=== PATIENT | male | born 1965 | race Caucasian/White ===

== ENCOUNTER 2017-11-16 19:37 | Inpatient (IN) | payer OTHER ==
[~2017-11-16] VITALS: Ht 172.7 cm; Wt 73.8 kg
--- NOTE | ~2017-11-16 | CATHLAB ---
[facility] [address] [place] [address] INVASIVE PROCEDURE REPORT Name: KADEN SHEPPARD Room #: 210-P ADM IN M.R.#: [id number] Admission: 11/16/17 Attend Phys: Carmelo Fairchild, Discharge: Date of : 65 Date of Service: 11/17/17 1240 Report #: [id number] THIS REPORT FOR: //name// APPROVED REPORT Study performed: 11/16/2017 19:43:13 Patient Details Patient Status: ED Room #: The patient is a 52 year-old male Event Personnel Carmelo Fairchild Unarmed Security Officer, Moraima Lora, Layton Cleaning RN, Nel Stone Scrub Procedures Performed Art Access - R femoral artery* Left Heart Cath w/or w/o Coronaries [id number] [facility] MYKE Revasc AMI Total/Sub Single PDA C9606 AMIREVSING Indication STEMI (>0 to less than or equal to 6 hours) Risk Factors Dysplipidemia , Family History, Hypertension, Tobacco History () Admission/Lab Medications/Medications given during procedure Aspirin, Glycoprotein IllbIlla Inhibitors, Heparin Unfract. Procedure Narrative The Right Groin^ was infiltrated with 2% Lidocaine subcutaneous anesthesia. A PINNACLE 6FR Sheath #[id number] sheath was inserted into the RFA^. Coronary angiography was performed using coronary diagnostic catheters. The right coronary system was accessed and visualized with a JR4 catheter. The left coronary system was accessed and visualized with a JL4 catheter. The left ventricle was accessed and visualized with a Pigtail catheter. Left ventricular/Aortic Valve gradient assessed via catheter pullback. Left ventriculogram was performed in 30 degree projection. Hemostasis was obtained with manual pressure following sheath removal without any complications. The patient tolerated the procedure well and there were no complications associated with the procedure. [facility] [place] [address] INVASIVE PROCEDURE REPORT Name: SILVERKADEN Room #: 210-[facility] IN M.R.#: [id number] Admission: 11/16/17 Attend Phys: Carmelo Fairchild, Discharge: Date of : 65 Date of Service: 11/17/17 1240 Report #: [id number] Fluoro Time: 11.16 minutes Dose: DAP 86670.90 cGycm2 1157 mGy Contrast Type and Amount: Omnipaque 210 ml Coronary Angiography The patient's coronary anatomy is right dominant. Diagnostic Cath Left Main Mild distal left main plaquing, 20% LAD Tubular, 30% mid LAD stenosis Circumflex The circumflex was large but nondominant. The main circumflex in the AV groove was angiographically normal OM1 First marginal branch with a 60% proximal stenosis OM2 Second marginal branch, large in caliber, angiographically normal OM3 Small, distally arising third marginal branch without angiographic disease Right Coronary Dominant right coronary subtotally occluded in its midportion. TEQUILA 1 flow Mild 20-30% proximal and distal right coronary plaquing R PDA The mid posterior descending exhibited a 95% stenosis RPLV Posterorlateral branch was angiographically normal Left Ventriculography The left ventricle is normal in size with abnormal contractility. The left ventricular ejection fraction is estimated to be 45%. Left ventricular wall motion abnormalities are present. There is no mitral insufficiency. Mild left ventricular dysfunction with inferior wall hypokinesis. No aortic stenosis. No mitral insufficiency. Hemodynamics The aortic pressure is 134/66 mmHg with a mean of 92 mmHg. The left ventricular pressure is 119/8 mmHg with a mean of mmHg. The left ventricular end diastolic pressure is 22 mmHg. PCI Technique Lesion Anticoagulation was achieved with Heparin, Integrilin. Patient was preloaded with Brillinta. Percutaneous coronary intervention was performed on the right posterior descending artery. A LAUNCHER 6FR JR 4 SH #[id number] Guide Catheter was used to engage the right coronary ostium. A Luge Wire .014 x 182CM #[id number] Interventional Guidewire was used to cross the lesion. BALLOON DILATION [facility] [address] [place] [address] INVASIVE PROCEDURE REPORT Name: SILVERKADEN Room #: 210-P [facility] IN M.R.#: [id number] Admission: 11/16/17 Attend Phys: Carmelo Fairchild, Discharge: Date of : 65 Date of Service: 11/17/17 1240 Report #: [id number] A Balloon catheter Euphora RX 2.5 x 12 #[id number] was inserted and inflated up to 12.00atm for 32seconds. Repeat angiography revealed the following post-dilatation results: moderate residual stenosis. Additional Inflation: 14atm for 25seconds. STENT DEPLOYMENT A drug-eluting stent RESOLUTE RX 2.5 X 14 #[id number] was inserted and inflated up to 16atm for 30seconds. Repeat angiography revealed the following post-stent deployment results: 0% residual mid PDA stenosis. POST STENT DEPLOYMENT BALLOON DILATION A Balloon catheter TREK NC RX 2.5 X 12 #[id number] was inserted and inflated up to 12atm for 30seconds. Repeat angiography revealed the following post-dilatation results: well expanded stent without residual stenosis. Final angiography reveals 0 % stenosis with TEQUILA 3 flow. PCI Technique Lesion 2 Percutaneous Coronary Intervention was performed on the mid right coronary artery. Percutaneous coronary intervention was performed on the mid right coronary artery. The lesion stenosis prior to intervention was 99% with TEQUILA 2 flow. A LAUNCHER 6FR JR 4 SH #[id number] Guide Catheter was used to engage the right coronary ostium. A Luge Wire .014 x 182CM #[id number] Interventional Guidewire was used to cross the lesion. Balloon Dilation A Balloon catheter Euphora RX 2.5 x 12 #[id number] was inserted and inflated up to 14atm for 25seconds. Repeat angiography revealed the following post-dilatation results: moderate residual stenosis . Stent Deployment A drug-eluting stent RESOLUTE RX 3.0 X 22 #[id number] was inserted and inflated up to 14atm for 30seconds. Post Stent Deployment Balloon Dilation A Balloon catheter TREK NC RX 3.0 X 15 #[id number] was inserted and inflated up to 22atm for 30seconds. Repeat angiography revealed the following post-dilatation results: 0% residual stenosis . Final angiography reveals 0 % stenosis with TEQUILA 3 flow. [facility] [address] [address] INVASIVE PROCEDURE REPORT Name: KADEN SHEPPARD Room #: 210-P [facility] IN M.R.#: [id number] Admission: 11/16/17 Attend Phys: Carmelo Fairchild, Discharge: Date of : 65 Date of Service: 11/17/17 1240 Report #: [id number] Conclusion 1. Mild-moderate LV dysfunction with inferior wall hypokinesis. EF 45% 2. Mild distal left main plaquing 20% 3. Moderate 30% tubular mid LAD stenosis 4. 60% proximal OM1 stenosis. 5. Dominant RCA. Subtotalled mid RCA treated with 3.0 x 22 Resolute stent. Severe mid PDA stenosis treated with 2.5 x 14mm Resolute stent Recommendations Smoking Cessation Cardiac Rehabilitation Referral Aggressive Medical Therapy Medications Administered CESAR Inhibitor (any) Aspirin (any) Beta Jose Antonio (any) Statin (any) Ticagrelor Cardiac Rehabilitation Referral Smoking Cessation <ELECTRONICALLY SIGNED> By: Carmelo Fairchild MD, FAC 11/17/17 1240 1240 1240 Carmelo Fairchild MD, FACC /INF
--- NOTE | ~2017-11-16 | H ---
[facility] [address] [place] [address] [place] [address] HISTORY AND PHYSICAL Name: KADEN SHEPPARD Room #: 210-P ADM IN M.R.#: [id number] Admission: 11/16/17 Attend Phys: Carmelo Fairchild MD, Discharge: Date of : 65 Report #: [id number] THIS REPORT FOR: //name// CC: Carmelo Fairchild [facility] physician/PCP DATE OF SERVICE: 11/16/2017 REASON FOR ADMISSION: Chest pain. HISTORY OF PRESENT ILLNESS: The patient is a 52-year-old gentleman with history of hypertension who presented with midsternal chest pain. He was seen at [facility] Emergency Department where an EKG demonstrated inferior and lateral ST segment elevation. Life flight was not flying. He was transported by ambulance to [facility]. He has had substantial improvement in his pain with heparin and aspirin prior to transfer. He denies heart failure symptoms including orthopnea, paroxysmal nocturnal dyspnea, lower extremity edema. No history of palpitations, near syncope or syncope. ALLERGIES: HE IS ALLERGIC TO CODEINE AND ZOLOFT. MEDICATIONS: Include citalopram 40 mg daily, atenolol 50 mg daily and omeprazole. PAST MEDICAL HISTORY: His past history and medical records have been reviewed and include a history of left shoulder surgery, carpal tunnel release, no surgery, history of hypertension, bipolar, depression. SOCIAL HISTORY: He is , smoker, 2-pack per day, nondrinker. FAMILY HISTORY: Notable for mother who had bypass at the age of 41. REVIEW OF SYSTEMS: All systems negative except as that noted above. PHYSICAL EXAMINATION: GENERAL: He is a pleasant gentleman in no distress. VITAL SIGNS: Blood pressure is 150/60, heart rate of 50 and regular, respirations unlabored at 18. HEENT: There are neither xanthelasma, subcutaneous xanthomata, oral mucosal, digital cyanosis or kyphoscoliosis present. CHEST: Clear to auscultation and percussion. CARDIAC: Distant, regular rate and rhythm with normal S1, S2. No murmurs or rubs. ABDOMEN: Soft and nontender. EXTREMITIES: Without cyanosis, clubbing or edema. Radial pulses are 2+. NEUROLOGIC: He is alert with a nonfocal exam. [facility] [address] [address] HISTORY AND PHYSICAL Name: KADEN SHEPPARD Room #: [address] [place] [address] IN .R.#: [id number] Admission: 11/16/17 Attend Phys: Carmelo Fairchild MD, Discharge: Date of : 65 Report #: [id number] LABORATORY DATA: EKG sinus rhythm with 5-6 mm of inferior and lateral ST elevation. Blood work remains pending. IMPRESSION: 1. Acute inferior myocardial infarction. 2. Tobacco dependency. 3. Hypertension. 4. Dyslipidemia. RECOMMENDATIONS: Urgent coronary angiographic. The angiographic procedure was discussed in detail including its associated risks. After a thorough discussion of the procedure, its risks and alternatives and after answering his questions, he is agreeable to proceeding. There are no contraindications to dual antiplatelet therapy. <ELECTRONICALLY SIGNED> By: Carmelo Fairchild MD, FACC 11/17/17 1249 19 40 Carmelo Fairchild MD, FACC /nt
--- NOTE | ~2017-11-16 | D ---
[facility] [place] [address] [place] [address] DISCHARGE SUMMARY Name: KADEN SHEPPARD Room #: 210-P [facility] IN M.R.#: [id number] Admission: 11/16/17 Attend Phys: Carmelo Fairchild MD, Discharge: 11/18/17 Date of : 65 Report #: [id number] THIS REPORT FOR: //name// CC: Carmelo Fairchild [facility] physician/PCP Derek Figueroa DISCHARGE DIAGNOSES: 1. Acute inferolateral myocardial infarction interrupted by stenting of the mid right coronary and mid posterior descending (3.0 x 22 mm Resolute stent to the mid RCA, 2.5 x 15 mm Resolute stent to the mid PDA). 2. Mild to moderate ischemic cardiomyopathy. 3. Hypertension. 4. Dyslipidemia. 5. Tobacco dependency. 6. History of bipolar depression. HISTORY OF PRESENT ILLNESS: For the complete details of the history of present illness, see dictated history and physical. Briefly, the patient is a 52-year-old gentleman with a history of hypertension and longstanding tobacco dependency. He presented with midsternal chest discomfort to [facility] Emergency Department where an EKG demonstrated prominent inferolateral ST segment elevation. Due to inclement weather, Life Flight was not flying and he was transferred by ambulance where he was taken directly to coronary angiography. HOSPITAL COURSE: The patient was taken to angiography. The full details can be seen under a separate heading and dictation. In summary, the mid right coronary was found to be occluded, which was stented with a 3.0 x 22 mm Resolute medicated stent. The mid posterior descending exhibited a severe 95% stenosis stented with a 2.5 x 15 mm Resolute stent. Both stents were postdilated with a noncompliant balloon. Post-procedural course was uneventful. His peak troponin was 121. Lipid profile demonstrated total cholesterol of 195, HDL 42, LDL 129 and triglycerides of 122. Smoking cessation counseling was performed. An echocardiogram was performed, although the results remain pending at the time of dictation. The patient was hemodynamically and electrically stable with excellent groin hemostasis at the time of discharge. DISCHARGE MEDICATIONS: Include Brilinta 90 mg twice daily, aspirin 81 mg daily, atorvastatin 40 mg daily, atenolol 50 mg daily, lisinopril 10 mg daily, omeprazole as needed and Celexa 40 mg daily. DISCHARGE FOLLOWUP: With myself in 4-[address] Derek Figueroa. Followup with outpatient cardiac rehabilitation in 1-[address] [address] DISCHARGE SUMMARY Name: KADEN SHEPPARD Room #: 210-P [facility] IN M.R.#: [id number] Admission: 11/16/17 Attend Phys: Carmelo Fairchild MD, Discharge: 11/18/17 Date of : 65 Report #: [id number] Medicines were reconciled. Smoking cessation counseling was performed. DISCHARGE DIET: Heart healthy. DISCHARGE ACTIVITY: As instructed post-catheterization and myocardial infarction. DISCHARGE CONDITION: Stable and improved. <ELECTRONICALLY SIGNED> By: Carmelo Fairchild MD, [facility] 11/22/17 0737 0810 1012 Carmelo Fairchild MD, [facility] /nt
--- NOTE | ~2017-11-16 | 2DMMODE ---
[facility] [address] [place] [address] 2 D/M-MODE ECHOCARDIOGRAM Name: KADEN SHEPPARD Room #: 210-P [facility] IN M.R.#: [id number] Admission: 11/16/17 Attend Phys: Carmelo Fairchild, Discharge: Date of : 65 Date of Service: 11/17/17 1128 Report #: [id number] THIS REPORT FOR: //name// APPROVED REPORT Study performed: 11/17/2017 09:20:55 EXAM: Comprehensive 2D, Doppler, and color-flow Echocardiogram Patient Location: Bedside Room #: 210 Status: routine BSA: 1.89 HR: 53 bpm BP: 119/65 mmHg Other Information Study Quality: Good Indications CAD Hypertension/HDD CT 2D Dimensions RVDd: 34.01 mm LVEF(%): 63.76 (>50%) IVSd: 12.01 (7-11mm) LVOT Diam: 23.52 (18-24mm) LVDd: 44.82 mm PWd: 12.29 (7-11mm) Ascending Ao: 29.34 (22-36mm) LVDs: 29.36 (25-40mm) Aortic Root: 32.86 mm IVC: 18.00 mm Noble's LVEF: 63.76 % Volumes Left Atrial Volume (Systole) Single Plane 4CH: 41.50 mL Single Plane 2CH: 43.84 mL LA ESV Index: 25.00 mL/m2 Aortic Valve AoV Peak Alex.: 1.09 m/s AO Peak Gr.: 4.77 mmHg LVOT Max P.61 mmHg LVOT Max V: 1.29 m/s LUCIA Vmax: 5.11 cm2 Mitral Valve E/A Ratio: 1.4 [facility] [employer] [place] [address] 2 D/M-MODE ECHOCARDIOGRAM Name: KADEN SHEPPARD Room #: [facility] IN .R.#: [id number] Admission: 11/16/17 Attend Phys: Carmelo Fairchild, Discharge: Date of : 65 Date of Service: 11/17/17 1128 Report #: [id number] MV Decel. Time: 225.41 ms MV E Max Alex.: 0.65 m/s MV A Alex.: 0.45 m/s MV PHT: 65.37 ms IVRT: 106.11 ms Pulmonary Valve PV Peak Alex.: 0.86 m/s PV Peak Gr.: 2.93 mmHg Pulmonary Vein P Vein S: 0.60 m/s P Vein A: 0.25 m/s P Vein D: 0.39 m/s P Vein A Dur.: 106.1 msec P Vein S/D Ratio: 1.54 Tricuspid Valve TR Peak Alex.: 2.78 m/s RAP Estimate: 5.00 mmHg TR Peak Gr.: 30.94 mmHg PA Pressure: 36.00 mmHg Left Ventricle The left ventricle is normal size. Mild concentric left ventricular hypertrophy. Left ventricular systolic function is mildly decreased. Hypokinesis involving the base of the inferior wall. LVEF is 45-50%. The left ventricular diastolic function is normal. Right Ventricle The right ventricle is normal size. The right ventricular systolic function is normal. Atria The left atrium size is normal. The right atrium size is normal. Aortic Valve The aortic valve is normal in structure, trileaflet. No aortic regurgitation is present. There is no aortic valvular stenosis. Mitral Valve The mitral valve is normal in structure. Mild mitral regurgitation. No evidence of mitral valve stenosis. Tricuspid Valve The tricuspid valve is normal in structure. Mild tricuspid regurgitation. PAP is estimated at 35 mmHg. [facility] [address] [place] [address] 2 D/M-MODE ECHOCARDIOGRAM Name: KADEN SHEPPARD Room #: 210-P [facility] IN [facility]#: [id number] Admission: 11/16/17 Attend Phys: Carmelo Fairchild, Discharge: Date of : 65 Date of Service: 11/17/17 1128 Report #: [id number] Pulmonic Valve The pulmonary valve is normal in structure. There is no pulmonic valvular regurgitation. Great Vessels The aortic root is normal in size. IVC is normal in size and collapses >50% with inspiration. Pericardium There is no pericardial effusion. <Conclusion> Left ventricular systolic function is mildly decreased. Hypokinesis involving the base of the inferior wall. LVEF is 45-50%. The aortic valve is normal in structure, trileaflet. No aortic regurgitation or stenosis The mitral valve is normal in structure. Mild mitral regurgitation. Mild tricuspid regurgitation. Pulmonary artery pressure estimated at 35 mmHg. There is no pericardial effusion. <ELECTRONICALLY SIGNED> By: Carmelo Fairchild MD, [facility] 11/17/17 1128 1128 1128 Carmelo Fairchild MD, FAC /INF
--- NOTE | ~2017-11-16 | EKG ---
[address] [address] ELECTROCARDIOGRAM REPORT Name: KADEN SHEPPARD Room #: 210-P ADM IN M.R.#: [id number] Admission: 11/16/17 Attend Phys: Carmelo Fairchild MD, Discharge: Date of : 65 Report #: [id number] THIS REPORT FOR: //name// [facility] Test Date: 2017-11-16 Test Time: 22:10:08 Pat Name: KADEN SHEPPARD Department: Room: Gender: M [employer] Attendant: GUERA : 1965 Requested By: Carmelo Fairchild Order Number: [id number] MD: Austin Palacio Measurements Intervals [place] Rate: 50 P: 65 [place]: 138 QRS: -1 QRSD: 82 T: 6 QT: 420 QTc: 383 Interpretive Statements Sinus rhythm Abnormal R-wave progression, early transition Inferior infarct, age indeterminate No previous ECG available for comparison Electronically Signed On 11-17-2017 16:20:17 CDT by Austin Palacio [email or web address] <ELECTRONICALLY SIGNED> By: Austin Palacio MD 11/17/17 1620 09 09 Austin Palacio MD /MARIO
--- NOTE | ~2017-11-16 | EKG ---
[address] [address] ELECTROCARDIOGRAM REPORT Name: KADEN SHEPPARD Room #: 210-P ADM IN M.R.#: [id number] Admission: 11/16/17 Attend Phys: Carmelo Fairchild MD, Discharge: Date of : 65 Report #: [id number] THIS REPORT FOR: //name// [facility] Test Date: 2017-11-17 Test Time: 06:39:41 Pat Name: KADEN SHEPPARD Department: Room: 210 P Gender: M Business Consultant: KRISTOPHER : 1965 Requested By: Carmelo Fairchild Order Number: [id number] MD: Austin Palacio Measurements Intervals [place] Rate: 56 P: 57 [place]: 136 QRS: -37 QRSD: 85 T: -38 QT: 418 QTc: 404 Interpretive Statements Sinus rhythm Inferoposterior infarct, age indeterminate Baseline wander in lead(s) I,II,III,aVF No previous ECG available for comparison Electronically Signed On 11-17-2017 16:21:44 CDT by Austin Palacio [email or web address] <ELECTRONICALLY SIGNED> By: Austin Palacio MD 11/17/17 1621 0639 0639 Austin Palacio MD /MARIO
[2017-11-16 21:29] LABS: HEMATOCRIT 44.7 % (42.0-52.0); HEMOGLOBIN 15.2 gm/dL (14.0-18.0); MCH 29.3 pg (26.0-34.0); MCV 86.1 fL (80.0-100.0); RBC 5.19 mil/uL (4.50-6.00); RDW 14.6 % (10.5-14.5); WBC 10.4 thou/uL (4.0-11.0)
[2017-11-16 21:37] LABS: POTASSIUM 3.9 mmol/L (3.5-5.1)
[2017-11-16 21:47] LABS: TROPONIN-I 0.4 ng/mL (<0.06)
[2017-11-16 22:15] VITALS: BP 125/67
[2017-11-16] MEDS ORDERED: OMEPRAZOLE 20 M20 M1 PO (23:29)
[2017-11-16] MEDS ORDERED: CELEXA40 MG PO (23:30)
[2017-11-17] VITALS (7 sets, daily range): BP systolic 112–163; BP diastolic 64–91
[2017-11-17 05:25] LABS: HEMOGLOBIN 14.3 gm/dL (14.0-18.0); MCH 29.3 pg (26.0-34.0); MCHC 33.3 g/dL (28.0-37.0); MCV 87.9 fL (80.0-100.0); RBC 4.89 mil/uL (4.50-6.00); RDW 14.6 % (10.5-14.5)
[2017-11-17 05:43] LABS: ALBUMIN 3.3 g/dL (3.4-5.0); ANION GAP 5 mmol/L (7-16); BUN 15 mg/dL (7-18); CALCIUM 8.7 mg/dL (8.5-10.1); CHLORIDE 103 mmol/L (98-107); CHOLESTEROL 195 mg/dL (<200); CO2 29 mmol/L (21-32); CREATININE 0.9 mg/dL (0.7-1.3); GLUCOSE 108 mg/dL (74-106); HDL CHOLESTEROL 42 mg/dL (>40); LDL CHOLESTEROL 129 mg/dL (<100); POTASSIUM 3.7 mmol/L (3.5-5.1); SGOT 203 U/L (15-37); SGPT 44 U/L (30-65); SODIUM 137 mmol/L (136-145); TC:HDL 4.6 Ratio (Not establshd); TOTAL BILIRUBIN 0.4 mg/dL (<0.1-1.0); TOTAL PROTEIN 6.7 g/dL (6.4-8.2); TRIGLYCERIDE 122 mg/dL (<150); VLDL 24 mg/dL (<40)
[2017-11-17 05:44] LABS: SERUM ASSESSMENT Clear
[2017-11-17 06:06] LABS: TROPONIN-I 121.69 ng/mL (<0.06)
[2017-11-17] MEDS ORDERED: ATENOLOL 50MG T50 M1 PO (08:00)
[2017-11-17] MEDS ORDERED: ATORVASTATIN CA40 MG PO (08:00)
[2017-11-17] MEDS ORDERED: LISINOPRIL10 MG PO (08:00)
[2017-11-17] MEDS ORDERED: BRILINTA90 MG PO (08:00)
[2017-11-17] MEDS ORDERED: NICOTINE TRANSD21 M1 TRANSDERM (08:00)
[2017-11-17] MEDS ORDERED: ASPIR 8181 MG PO (08:00)
[2017-11-18 03:53] VITALS: BP 138/71
[2017-11-18 08:00] VITALS: BP 134/75
[2017-11-18 10:23] VITALS: BP 134/75
[2017-11-18 11:26] VITALS: BP 134/75
== END 2017-11-18 11:24 | disposition home or self-care (01) | DRG 246 ==
LOC: 2N 19:37 → ENTRNSPT 11-18 11:08 → EDTRNSPTSTS 11-18 11:15 → 2N 11-18 11:24
PROVIDERS: Internal Medicine
PROC: B2151ZZ Fluoroscopy of Left Heart using Low Osmolar Contrast (ICD-10-PCS; principal; 2017-11-17)
PROC: B2111ZZ Fluoroscopy of Multiple Coronary Arteries using Low Osmolar Contrast (ICD-10-PCS; principal; 2017-11-17)
PROC: 4A023N7 Measurement of Cardiac Sampling and Pressure, Left Heart, Percutaneous Approach (ICD-10-PCS; principal; 2017-11-17)
PROC: 027135Z Dilation of Coronary Artery, Two Arteries with Two Drug-eluting Intraluminal Devices, Percutaneous Approach (ICD-10-PCS; principal; 2017-11-17)
DX: I21.19 ST elevation (STEMI) myocardial infarction involving other coronary artery of inferior wall (principal); I50.21 Acute systolic (congestive) heart failure; F31.9 Bipolar disorder, unspecified; E78.5 Hyperlipidemia, unspecified; F17.210 Nicotine dependence, cigarettes, uncomplicated; Z79.82 Long term (current) use of aspirin; Z79.899 Other long term (current) drug therapy; Z88.8 Allergy status to other drugs, medicaments and biological substances; Z88.6 Allergy status to analgesic agent; Z82.49 Family history of ischemic heart disease and other diseases of the circulatory system; I11.9 Hypertensive heart disease without heart failure
CPT/HCPCS: 10081